=== PATIENT | male | born 1965 | race Caucasian/White ===

== ENCOUNTER → 2016-11-18 | Outpatient (CLI) | payer BC, OTHER ==
[~2016-11-18] MED LIST: ADVIL; LRTUNK
[2016-11-18 13:51] LABS: BASO % 0.3 %; BASO ABS # 0.02 K/uL (0-0.2); COMPLETE YES; HEMATOCRIT 41.3 % (42-52); IG% 0.1 %; LYMPH % 19.9 %; LYMPH ABS # 1.34 K/uL (1.2-3.4); MEAN CELL VOLUME 90.2 fL (80-100); MEAN CORPUSCULAR HGB CONC 34.4 g/dl (32-36); MEAN PLATELET VOLUME 9.8 fL (7.4-10.4); MONO % 5.8 %; NEUT % 72.9 %; PLATELET COUNT 210 K/uL (130-400); RED BLOOD COUNT 4.58 M/uL (4.7-6.1); WHITE BLOOD COUNT 6.74 K/uL (4.8-10.8)
[2016-11-18 14:04] LABS: ESTIMATED AVERAGE GLUCOSE 105 mg/dl; HA1C FLAG Normal (Normal)
[2016-11-18 14:17] LABS: ALT/SGPT 21 U/L (12-78); BLOOD UREA NITROGEN 11 mg/dl (7-18); BUN/CREATININE RATIO 10.4 (10-20); CALCIUM 9.4 mg/dl (8.5-10.1); CARBON DIOXIDE 21 mmol/L (21-32); CHLORIDE 109 mmol/L (98-107); GLUCOSE 86 mg/dl (70-99); SODIUM 139 mmol/L (136-145)
[2016-11-18 14:28] LABS: ALB/GLOB RATIO 1.4 (0.9-2); ALKALINE PHOSPHATASE 72 U/L (45-117); AST/SGOT 19 U/L (15-37)
== END | disposition home or self-care (01) ==
LOC: C.LABSPEC 13:37
PROVIDERS: ATTEND Family Medicine
DX: R63.4 Abnormal weight loss (principal)

== ENCOUNTER 2021-05-22 20:35 | Inpatient (IN) ==
[2021-05-22] MEDS ORDERED: LABETALOL HCL IV 5 MG/ML 20ML IV STA (21:09)
--- NOTE | 2021-05-22 21:12 | Emergency Department Note ---
Impression & Plan Hypertension, Left upper extremity numbness, Arm pain, left ADMIT ED Provider Note HPI: The patient is a 56-year-old gentleman who presents the emergency department the chief complaint of headache, very mild blurriness of vision, and left arm numbness/tingling that has been ongoing for the past 4-5 hours. Patient states that he took a nap this afternoon, states he woke up with a mild headache, states he had a feeling in his left arm as if his arm was going numb as if it was "asleep". Patient is unsure when exactly this occurred, states it was sometime around 4 or 5 PM. He states that he waited several hours however the sensation improved only mildly and he still had the sensation therefore discussed with his , he was then brought to the emergency department for further assessment. On arrival here to the ED the patient states he does have some mild headache, states his vision has improved, he does state that he still has a sensation of numbness/tingling in the left upper extremity down to his left hand. He does have motor function intact, no focal deficits otherwise, ambulates extremities spontaneously, he is noted to be hypertensive at 181/105 on arrival but is otherwise hemodynamically stable and saturating well on room air. ROS: -Neuro: Headache, left upper extremity numbness/tingling x4-5 hours *10 point review systems was conducted and is otherwise negative unless stated above *Outpatient medications and allergy history reviewed PE: General: Alert, NAD HEENT: Normocephalic, atraumatic Eyes: Extraocular eye movement is intact, no scleral erythema Pulmonary: Clear to auscultation bilaterally, no wheezing Cardio: Regular rate and rhythm GI: Abdomen is soft, nontender : No suprapubic tenderness MSK: No evidence of trauma or malformation of the extremities, no edema Skin: No evidence of rash Neuro: Alert, no focal deficits, symmetrical facial movement is appreciated, patient ambulates all extremities spontaneously, 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: - An order was placed for continuous cardiac monitoring - Patient was noted to be in sinus rhythm with rate of 70 NIH STROKE SCALE: 1A: Level of consciousness Alert; keenly responsive 0 1B: Ask month and age Both questions right 0 1C: 'Blink eyes' & 'squeeze hands' Performs both tasks 0 2: Horizontal extraocular movements Normal 0 3: Visual william No visual loss 0 4: Facial palsy Normal symmetry 0 5A: Left arm motor drift No drift for 10 seconds 0 5B: Right arm motor drift No drift for 10 seconds 0 6A: Left leg motor drift No drift for 5 seconds 0 6B: Right leg motor drift No drift for 5 seconds 0 7: Limb Ataxia No ataxia 0 8: Sensation Mild-moderate loss: less sharp/more dull +1 9: Language/aphasia Normal; no aphasia 0 10: Dysarthria Normal 0 11: Extinction/inattention No abnormality 0 TOTAL NIH SCORE = 1 EKG: Rate: 65 Rhythm: Normal sinus rhythm Intervals: Within normal limits ST changes: No ST elevation Time: 2047 CTA HEAD: There is mild irregularity of the distal internal carotid arteries bilaterally without significant focal stenosis or dissection. There is a normal anatomic variant of origin of the right posterior ce rebral artery from the anterior circulation and hypoplasia of the right P1 segment. The anterior, middle, and posterior cerebral arteries appear within normal limits. There is 6 mm ectasia of the distal right internal carotid artery. No focal stenosis or arterial thrombus is identified. CTA NECK: The aortic arch is nondilated. There is no aneurysm or dissection. The great vessel origins are widely patent. There is mixed density plaque in the right carotid bifurcation with 30-40% stenosis oblique proximal right internal carotid artery. There is mixed density plaque in the left carotid bifurcation causing 20% stenosis of the proximal left internal carotid artery. The vertebral arteries are widely patent bilaterally. Incidental now his main previous fusion of the cervical spine from C5-C7 and mild multilevel degenerative changes. Radiologist: Magen Lee MD Medical Decision Making: Patient presented to the emergency department chief complaint of left upper extremity numbness/tingling, states it is improved from previous although it is still present, has been for about the past 4 to 5 hours, timeline is somewhat unclear specifically. He states this did occur when he woke up from a nap today. He also complains of some mild headache, states that he had some transient visual changes. This is in the setting of hypertension, patient's blood pressure is 181/105 on arrival, he denies any chest pain or shortness of breath. He states that he has had some health insurance issues recently and has not been following with a physician. Shortly after arrival IV was established, lab work obtained, patient was ordered a dose of IV labetalol for his hypertension, CT imaging of the head with and without contrast/angiography was ordered given the patient's left arm numbness and tingling over concern for possible stroke. He is considered outside the window for TPA given the unclear timeline somewhere around 4.5 hours, in addition I think that the risk of TPA outweighs the potential benefit given the mild nature of his symptoms at this time and questionable diagnosis of a ischemic stroke. This was discussed at the bedside with the patient and his and they are in agreement. Lab work was obtained and is largely unremarkable, hemoglobin is stable, no critical electrolyte abnormalities are noted, no acute kidney injury. High- sensitivity troponin is negative x1, EKG does not show any acute ischemic c hanges. CT scan of the head without contrast does not show any evidence of an acute intracranial abnormality, CT angiography does not show any evidence of large vessel occlusion, there is noted to be some stenosis of the carotid arteries bilaterally, 30 to 40% on the right, 20% on the left. On my reassessment the patient is resting comfortably in bed, his blood pressure is mildly improved from presentation 175/96 after IV labetalol. Patient has what appears to be undiagnosed hypertension, he states he has not been following with a PCP secondary to insurance issues, has a longstanding history of smoking, he is considered high risk for an ischemic event, I do think he would benefit from inpatient admission, MRI imaging in the morning and possible secondary stroke work-up. Patient initially was hesitant for admission, following discussion with his he is now in agreement. He was given aspirin prior to admission. [facility] and the patient was admitted in stable condition. * CRITICAL CARE TIME: ( 34 ) minutes -Treatment of hypertensive urgency requiring IV antihypertensive medications for blood pressure 187/140 in the setting of headache, time spent at the bedside, interpretation of diagnostic studies, discussion with other physicians including radiology and admitting services, arrangement of admission and discussion with patient/family Diagnosis: 1. Left arm numbness/tingling, stroke-like symptoms 2. hypertensive urgency 3. History of tobacco abuse 4. Left arm pain 5. Headache, acute Disposition: ADMIT Dario Acevedo, DO Emergency Medicine Past Med/Surg History Social History Smoking Status: Never smoker Preferred Language: Lao Feels Safe at Home: Yes Allergies Allergies Allergy/AdvReac Type Severity Reaction Status Date / Time No Known Allergies Allergy Unknown Verified 05/22/21 21:49 Home Meds Home Medications Medication Instructions Recorded Confirmed No Known Home Medications 05/22/21 05/22/21 Results & Data (ED) Vital Signs Vital Signs - 24 hr 05/22/21 20:44 05/22/21 21:04 05/22/21 22:23 Temperature 36.9 C Temperature Source Temporal Artery Scan Pulse Rate 69 Pulse Rate [Left Finger] 71 58 L Respiratory Rate 19 17 18 Respiratory Effort / Characteristics Non-Labored Spontaneous Non-Labored Spontaneous Non-Labored Respiratory Depth Normal Normal Normal Respiratory Pattern Regular Blood Pressure 187/140 H Blood Pressure [Right Arm] 181/105 H 175/96 H Blood Pressure Mean 155 Blood Pressure Mean [Right Arm] 130 122 Blood Pressure Position [Right Arm] Sitting Pulse Oximetry 97 98 97 Oxygen Delivery Method Room Air Room Air Room Air Sepsis Recent Fever Within 48 Hours No Sepsis New/Unexplained Change in Mental Status N/A Sepsis Action Taken by Nursing No Action Required 05/22/21 23:06 Temperature Temperature Source Pulse Rate Pulse Rate [Left Finger] 62 Respiratory Rate 18 Respiratory Effort / Characteristics Non-Labored Respiratory Depth Normal Respiratory Pattern Blood Pressure Blood Pressure [Right Arm] 168/94 H Blood Pressure Mean Blood Pressure Mean [Right Arm] 118 Blood Pressure Position [Right Arm] Sitting Pulse Oximetry 96 Oxygen Delivery Method Room Air Sepsis Recent Fever Within 48 Hours Sepsis New/Unexplained Change in Mental Status Sepsis Action Taken by Nursing Laboratory Data Result diagrams: 05/22/21 21:05 05/22/21 21:05 Lab Results 05/22/21 05/22/21 05/22/21 Range/Units 21:05 21:05 21:05 WBC 7.16 (4.8-10.8) K/uL RBC 4.70 (4.7-6.1) M/uL Hgb 14.6 (14.0-18.0) g/dL Hct 42.5 (42-52) % MCV 90.4 (80-100) fL MCH 31.1 (25-34) pg MCHC 34.4 (32-36) g/dL RDW Std Deviation 42.8 (36.4-46.3) fL RDW Coeff of Jef 12.9 (11.5-14.5) % Plt Count 223 (130-400) K/uL MPV 9.6 (7.4-10.4) fL Immature Gran % (Auto) 0.1 % Neut % (Auto) 52.4 % Lymph % (Auto) 33.0 % [place] % (Auto) 10.3 % Eos % (Auto) 3.9 % Baso % (Auto) 0.3 % Neut # (Auto) 3.75 (1.4-6.5) K/uL Lymph # (Auto) 2.36 (1.2-3.4) K/uL [place] # (Auto) 0.74 H (0.11-0.59) K/uL Eos # (Auto) 0.28 (0-0.5) K/uL Baso # (Auto) 0.02 (0-0.2) K/uL Immature Gran # (Auto) 0.01 (0.00-0.02) K/uL PT 10.2 (9.0-12.0) Seconds INR 1.0 (0.9-1.1) APTT 28.3 (21.0-31.0) Seconds PTT Ratio 1.0 Sodium (136-145) mmol/L Potassium (3.5-5.1) mmol/L Chloride (98-107) mmol/L Carbon Dioxide (21-32) mmol/L Anion Gap (3-11) BUN (6-23) mg/dl Creatinine (0.6-1.4) mg/dl Est Cr Clr Drug Dosing Est GFR ( Amer) ml/min Est GFR (Non-Af Amer) ml/min BUN/Creatinine Ratio (10-20) Glucose (70-99(Fasting)) mg/dl Calcium (8.5-10.1) mg/dl Total Bilirubin (0.2-1.0) mg/dl AST (13-39) U/L ALT (7-52) U/L Alkaline Phosphatase (34-104) U/L Troponin I High Sens 2.7 (0-20) pg/ml Total Protein (6.0-8.3) gm/dl Albumin (3.4-5.0) gm/dl Globulin (2.5-4.0) gm/dl Albumin/Globulin Ratio (0.9-2) Lipase (11-82) U/L SARS-CoV-2, RNA, NAAT (NEGATIVE) 05/22/21 05/22/21 Range/Units 21:05 22:38 WBC (4.8-10.8) K/uL RBC (4.7-6.1) M/uL Hgb (14.0-18.0) g/dL Hct (42-52) % MCV (80-100) fL MCH (25-34) pg MCHC (32-36) g/dL RDW Std Deviation (36.4-46.3) fL RDW Coeff of Jef (11.5-14.5) % Plt Count (130-400) K/uL MPV (7.4-10.4) fL Immature Gran % (Auto) % Neut % (Auto) % Lymph % (Auto) % [place] % (Auto) % Eos % (Auto) % Baso % (Auto) % Neut # (Auto) (1.4-6.5) K/uL Lymph # (Auto) (1.2-3.4) K/uL [place] # (Auto) (0.11-0.59) K/uL Eos # (Auto) (0-0.5) K/uL Baso # (Auto) (0-0.2) K/uL Immature Gran # (Auto) (0.00-0.02) K/uL PT (9.0-12.0) Seconds INR (0.9-1.1) APTT (21.0-31.0) Seconds PTT Ratio Sodium 138 (136-145) mmol/L Potassium 4.0 (3.5-5.1) mmol/L Chloride 109 H (98-107) mmol/L Carbon Dioxide 22 (21-32) mmol/L Anion Gap 7 (3-11) BUN 12 (6-23) mg/dl Creatinine 0.96 (0.6-1.4) mg/dl Est Cr Clr Drug Dosing Not Reportable Est GFR ( Amer) 100.6 ml/min Est GFR (Non-Af Amer) 86.8 ml/min BUN/Creatinine Ratio 12.5 (10-20) Glucose 86 (70-99(Fasting)) mg/dl Calcium 8.9 (8.5-10.1) mg/dl Total Bilirubin 0.4 (0.2-1.0) mg/dl AST 12 L (13-39) U/L ALT 11 (7-52) U/L Alkaline Phosphatase 88 (34-104) U/L Troponin I High Sens (0-20) pg/ml Total Protein 6.9 (6.0-8.3) gm/dl Albumin 4.0 (3.4-5.0) gm/dl Globulin 2.9 (2.5-4.0) gm/dl Albumin/Globulin Ratio 1.4 (0.9-2) Lipase 28 (11-82) U/L SARS-CoV-2, RNA, NAAT NEGATIVE (NEGATIVE) Administered Medications Discontinued Medications Aspirin (Aspirin Chew 324 Mg) 324 mg PO NOW STA Stop: 05/22/21 22:40 Last Admin: 05/22/21 22:47 Dose: 324 mg Documented by: [id number] Ioversol (Optiray 320 125ml) 120 ml IV ONCE ONE Stop: 05/22/21 21:51 Last Admin: 05/22/21 21:50 Dose: 120 ml Documented by: [id number] Labetalol HCl (Labetalol Hcl Iv 5 Mg/Ml 20ml) 10 mg IV NOW STA Stop: 05/22/21 21:10 Last Admin: 05/22/21 21:35 Dose: 10 mg Documented by: [id number] Cosigned by: [id number] Discharge Plan Visit Data Chief Complaint: Hypertension Stated Complaint: PAIN IN L SHOULDER, BLOOD PRESSURE IS HIGH 183/109 ED Provider: Dario Acevedo Discharge Problem: Hypertension, Left upper extremity numbness, Arm pain, left Forms Stand Alone Forms: [employer] Prescriptions Prescriptions: No Action No Known Home Medications RF: 0 Referrals Referrals: PCP,NO [Primary Care Provider] - Discharge Problem: Hypertension Qualifiers: Hypertension type: unspecified Qualified Code(s): I10 - Essential (primary) hypertension
[2021-05-22 21:20] LABS: Basophils # (auto) 0.02 K/uL (0-0.2); Basophils % (auto) 0.3 %; Eosinophils # (auto) 0.28 K/uL (0-0.5); Eosinophils % (auto) 3.9 %; Hematocrit (blood only) 42.5 % (42-52); Hemoglobin 14.6 g/dL (14.0-18.0); Immature Granulocytes # (auto) 0.01 K/uL (0.00-0.02); Immature Granulocytes % (auto) 0.1 %; Lymphocytes # (auto) 2.36 K/uL (1.2-3.4); Mean Corpuscular Hemoglobin 31.1 pg (25-34); Mean Corpuscular Hgb Conc 34.4 g/dL (32-36); Mean Corpuscular Volume 90.4 fL (80-100); Mean Platelet Volume 9.6 fL (7.4-10.4); Monocytes # (auto) 0.74 K/uL (0.11-0.59); Monocytes % (auto) 10.3 %; Neutrophils # (auto) 3.75 K/uL (1.4-6.5); Neutrophils % (auto) 52.4 %; Platelet Count 223 K/uL (130-400); RDW Coefficient of Variation 12.9 % (11.5-14.5); RDW Standard Deviation 42.8 fL (36.4-46.3); White Blood Count 7.16 K/uL (4.8-10.8)
[2021-05-22 21:32] LABS: Partial Thromboplastin Time 28.3 Seconds (21.0-31.0); Prothrombin Time 10.2 Seconds (9.0-12.0)
[2021-05-22] MEDS ORDERED: OPTIRAY 320 125ml IV ONE (21:50)
[2021-05-22 21:55] LABS: Alanine Aminotransferase 11 U/L (7-52); Albumin Globulin Ratio 1.4 (0.9-2); Alkaline Phosphatase 88 U/L (34-104); Anion Gap 7 (3-11); Aspartate Aminotransferase 12 U/L (13-39); BUN Creatinine Ratio 12.5 (10-20); Bilirubin,Total 0.4 mg/dl (0.2-1.0); Blood Urea Nitrogen 12 mg/dl (6-23); Calcium 8.9 mg/dl (8.5-10.1); Carbon Dioxide 22 mmol/L (21-32); Chloride 109 mmol/L (98-107); Est GFR (African American) 100.6 ml/min; Est GFR (Non-African American) 86.8 ml/min; Globulin 2.9 gm/dl (2.5-4.0); Glucose 86 mg/dl (70-99(Fasting)); Lipase 28 U/L (11-82); Sodium 138 mmol/L (136-145); Total Protein 6.9 gm/dl (6.0-8.3)
[2021-05-22] MEDS ORDERED: ASPIRIN CHEW 324 MG PO STA (22:39)
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
[2021-05-23] MEDS ORDERED: ATORVASTATIN 40 MG TAB PO STA (00:42)
[2021-05-23] MEDS ORDERED: PHARMACIST DISCHARGE MED REC CONSULT PRN (02:05)
--- NOTE | 2021-05-23 06:31 | XRay Report ---
XR chest 1V portable CLINICAL HISTORY: Chest Pain. COMPARISON STUDY: No previous studies for comparison. TECHNIQUE: 1 view of the chest FINDINGS: Single frontal view of the chest demonstrates the cardiomediastinal silhouette to be within normal li mits. There is a decreased inspiratory effort with elevation of the hemidiaphragms and crowding of th e bronchovascular markings at the lung bases and centrally. There is very minimal linear atelectasis bilaterally. The lungs are clear of alveolar opacities. There is no evidence for pleural effusion. Th ere is no evidence for vascular congestion. There is no acute osseous pathology. IMPRESSION: 1. . There is a decreased inspiratory effort with otherwise no acute chest disease. Very minimal line ar atelectasis bilaterally. ACT 112: Negative or not required by law. Electronically signed by: Kenan Orr M.D. 05/23/2021 6:30 AM
--- NOTE | 2021-05-23 07:30 | CT Scan Report ---
CT angio neck with con, CT angio head wo/w CLINICAL HISTORY: 56 years-old Male with L arm numbness. Acute strokelike symptoms with left arm n umbness COMPARISON STUDY: None TECHNIQUE: Following the IV administration of 120 mL of Optiray, CT angiogram of the head and neck wa s performed from the aortic arch to the skull base. Images are reviewed in the axial, sagittal, and c oronal planes. 3-D MIPS images are created and assessed. IV contrast was administered without complic ation. All measurements were calculated based on NASCET criteria. Noncontrast head CT also obtained. A dose lowering technique was utilized adhering to the principles of ALARA. CT DOSE: 1185.83 mGy.cm FINDINGS: CT HEAD: No acute intracranial hemorrhage, midline shift, abnormal extra-axial collection, hydrocephalus or in tracranial mass. No acute territorial infarction identified. No acute calvarial fracture. Mastoid air cells are clear. Minimal mucosal thickening of the ethmoid air cells. Soft tissues and orbits are un remarkable. CTA HEAD AND NECK: Three-vessel morphology of the thoracic aortic arch. There is patency of the abdomen and imaged subcl agapito arteries. The common carotid arteries are patent. There is atherosclerotic plaque of the right greater than left carotid bulbs and proximal cervical segments of the internal carotid arteries resul ting in less than 50% stenosis bilaterally. There is fusiform ectasia involving the clinoid segment o f the right internal carotid artery and image 100 with measures 6 mm compared to 5 mm on the left. Th e middle and anterior cerebral arteries are patent. Dominant left vertebral artery. There is atherosc lerotic plaque involving the proximal V1 segment of the left vertebral artery. The bilateral vertebra l arteries are patent. The basilar and posterior cerebral arteries are also patent. origin of t he right posterior cerebral artery. The cerebral venous sinuses are patent. There is no abnormal intr acranial enhancement. No pneumothorax. Unremarkable thyroid and soft tissues of the neck. Degenerative changes of the cervi gaye spine. Anterior plate and screw fusion hardware noted at C5-C7. Mild mucosal thickening of the ma xillary and ethmoid sinuses. IMPRESSION: 1. No acute intracranial abnormality. 2. No aneurysm, dissection, high-grade stenosis or arterial occlusion. 3. Atherosclerotic plaque of the right greater than left carotid bulbs and proximal cervical segments of the internal carotid arteries results in less than 50% stenosis bilaterally. ACT 112: Negative or not required by law. The above report was generated using voice recognition software. It may contain grammatical, syntax o r spelling errors. Electronically signed by: Giorgio Mast M.D. 05/23/2021 7:27 AM
--- NOTE | 2021-05-23 07:33 | Electrocardiogram Report ---
Test Reason : Blood Pressure : / mmHG Vent. Rate : 065 BPM Atrial Rate : 065 BPM P-R Int : 172 ms QRS Dur : 076 ms QT Int : 382 ms P-R-T Axes : 003 044 067 degrees QTc Int : 397 ms Normal sinus rhythm Normal ECG When compared with ECG of 04-DEC-2007 09:38, T wave inversion no longer evident in Lateral leads Confirmed by Earl uQinn ([id number]) on 05/23/2021 7:33:22 AM Referred By: REFERRED SELF Confirmed By:Diego Quinn
[2021-05-23 08:49] LABS: Hematocrit (blood only) 44.9 % (42-52); Hemoglobin 15.4 g/dL (14.0-18.0); Mean Corpuscular Hgb Conc 34.3 g/dL (32-36); Mean Corpuscular Volume 90.3 fL (80-100); Mean Platelet Volume 9.7 fL (7.4-10.4); Platelet Count 249 K/uL (130-400); RDW Coefficient of Variation 13.1 % (11.5-14.5); RDW Standard Deviation 42.9 fL (36.4-46.3); Red Blood Count 4.97 M/uL (4.7-6.1); White Blood Count 7.23 K/uL (4.8-10.8)
[2021-05-23] MEDS ORDERED: NICOTINE 21 MG/24 HR TDSY TD SCH (09:00)
[2021-05-23 10:01] LABS: BUN Creatinine Ratio 10.5 (10-20); Calcium 9.2 mg/dl (8.5-10.1); Chol HDL Ratio 7.8 (0-5); Creatinine Clr Calc Pharmacy 95.7 ml/min; Est GFR (African American) 101.9 ml/min; Est GFR (Non-African American) 87.9 ml/min; Magnesium 2.1 mg/dl (1.7-2.4); Potassium 4.2 mmol/L (3.5-5.1)
[2021-05-23] MEDS ORDERED: STROKE PATIENT DISCHARGE STA (13:06)
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
--- NOTE | 2021-05-23 17:29 | Billing Data ---
Date of Service May 23, 2021 Coding Level of Care Code D/C DAY MANAGEMENT <30 MINS
--- NOTE | 2021-05-24 05:17 | Billing Data ---
Date of Service May 24, 2021 Coding Level of Care Code 23992 Initial Inpt Care Lvl 3
[2021-05-24 07:28] LABS: Estimated Average Glucose 114 mg/dl; Hemoglobin A1C 5.6 % (4.5-5.6)
[2021-05-24] MEDS ORDERED: ATORVASTATIN 40 MG TAB PO SCH (09:00)
== END 2021-05-23 13:26 | disposition home or self-care (01) | DRG 74 ==
LOC: ED 20:35 → 2W 23:59 → SUATTDRO 23:59 → 2W 05-23 01:28